=== PATIENT | female | born 1960 | race Caucasian/White ===

== ENCOUNTER → 2016-09-30 | Outpatient (CLI) | payer BC | LOC: MC.RAD 16:13 | DX: Z12.31 Encounter for screening mammogram for malignant neoplasm of breast (principal) ==

== ENCOUNTER 2017-02-04 07:00 | Day surgery (SDC) | payer BC ==
[~2017-02-04] VITALS: Ht 162.6 cm; Wt 62.9 kg
[2017-02-04] MEDS ORDERED: PROBIOTIC FORMU1 CAP PO (07:18)
[2017-02-04] MEDS ORDERED: MULTI VITAMINS1 TAB PO (07:20)
[2017-02-04] MEDS ORDERED: CALCIUM/MAGNESI1 T13 PO (07:22)
[2017-02-04] MEDS ORDERED: MELATONIN5 M1 PO (07:22)
[2017-02-04 07:47] VITALS: BP 126/85; PULSE 84; TEMP 98.3
[2017-02-04 08:40] VITALS: BP 107/73; PULSE 97; TEMP 97.8
[2017-02-04 08:55] VITALS: BP 102/75; PULSE 79
[2017-02-04 09:10] VITALS: BP 106/73; PULSE 74
[2017-02-04 13:23] VITALS: BP 97/70; PULSE 84
== END 2017-02-04 09:20 | disposition home or self-care (01) ==
LOC: SDCO 07:00
DX: Z12.11 Encounter for screening for malignant neoplasm of colon (principal)
CPT/HCPCS: J2250; J2405; J3010; J7030

== ENCOUNTER → 2017-11-11 | Outpatient (CLI) | payer BC ==
[~2017-11-11] MED LIST: CALCIUM/MAGNESI1 T13 PO; MELATONIN5 M1 PO; MULTI VITAMINS1 TAB PO; PROBIOTIC FORMU1 CAP PO
== END ==
LOC: MC.RAD 09:28
DX: N60.02 Solitary cyst of left breast (principal)

== ENCOUNTER → 2018-11-10 | Outpatient (CLI) | payer BC | LOC: MC.RAD 12:52 | DX: Z12.31 Encounter for screening mammogram for malignant neoplasm of breast (principal) ==

== ENCOUNTER → 2020-11-28 | Outpatient (CLI) | payer BC | LOC: MC.RAD 10:01 | DX: Z12.31 Encounter for screening mammogram for malignant neoplasm of breast (principal) ==

== ENCOUNTER → 2021-12-01 | Outpatient (CLI) | payer BC | LOC: MC.RAD 13:15 | DX: Z12.31 Encounter for screening mammogram for malignant neoplasm of breast (principal) ==

== ENCOUNTER → 2023-02-15 | Outpatient (CLI) | payer BC | LOC: MC.RAD 09:59 | DX: Z12.31 Encounter for screening mammogram for malignant neoplasm of breast (principal) ==